=== PATIENT | male | born 1975 | race Caucasian/White ===

== ENCOUNTER 2016-11-14 12:04 | Emergency (ER) | payer SELFPAY ==
[~2016-11-14] VITALS: Ht 180.3 cm; Wt 80.0 kg
[~2016-11-14 12:04] MED LIST: DOXY100T PO; METH10TA OR; SULF-154 PO
[2016-11-14 12:07] VITALS: BP 114/60; PULSE 77; RESP 12; TEMP 98; O2SAT 97
[2016-11-14] MEDS ORDERED: IBUP800T23 PO (12:47)
[2016-11-14] MEDS ORDERED: CEPH-460 PO (12:47)
[2016-11-14] MEDS ORDERED: BACT800T5 PO (12:47)
--- NOTE | 2016-11-14 12:47 | PD ---
HPI Chief Complaint: Skin Problem Time Seen by Provider: 21:18 Travel History International Travel<30 days: No Contact w/Intl Traveler<30days: No Traveled to known affect area: No History of Present Illness HPI 41-year-old male with history of IV drug abuse presents to the emergency department for evaluation of an abscess on the right hand. Patient injects Dilaudid. Has been doing this for 20 years. Reports that he noticed the abscess yesterday but has gotten worse today. Denies any limitation range of motion the affected hand. No fever or chills. No other symptoms reported this time. PFSH Past Medical History Medical History: Denies Significant Hx Cancer: No Cardiovascular Problems: No Endocrine: No Genitourinary: No Immune Disorder: No Musculoskeletal: No Neurologic: No Psychiatric: No Reproductive: No Respiratory: No Social History Alcohol Use: Yes Tobacco Use: Yes Substance Use: Yes Allergies-Medications (Allergen,Severity, Reaction): Coded Allergies: No Known Allergies (Unverified , 11/14/16) Reported Meds & Prescriptions Reported Meds & Active Scripts Active Ibuprofen 800 Mg Tab 800 Mg PO Q8H PRN Keflex (Cephalexin) 500 Mg Cap 500 Mg PO Q6H 5 Days Bactrim DS (Sulfamethoxazole-Trimethoprim) 800-160 Mg Tab 1 Tab PO BID Doxycycline Hyclate 100 mg (Doxycycline Hyclate) 100 Mg Tab 1 Tab PO BID 10 Days Septra Ds (Trimethoprim/Sulfamethoxazole) Tab 1 Tab PO BID 10 Days Reported Methadone Hcl10 M1 10 Mg Tab 100 Mg OR DAILY Review of Systems Except as stated in HPI: all other systems reviewed are Neg Physical Exam Narrative GENERAL: Well-nourished, well-developed male patient, ambulatory no acute distress SKIN: There is an indurated area in the dorsal right hand proximal to the MCP of the thumb which measures about 2 cm in diameter. It is fluctuant but there is no pointing or drainage. There is a zone of inflammation around it but no lymphangitis. HEAD: Normocephalic. EYES: No scleral icterus. No injection or drainage. NECK: Supple, trachea midline. No JVD or lymphadenopathy. CARDIOVASCULAR: Regular rate and rhythm without murmurs, gallops, or rubs. RESPIRATORY: Breath sounds equal bilaterally. No accessory muscle use.. MUSCULOSKELETAL: No cyanosis, or edema. Patient has full flexion extension of all the digits of the affected hand. Sensation intact distal affected digits. BACK: Nontender without obvious deformity. No CVA tenderness. Data Data Last Documented VS Vital Signs Date Time Temp Pulse Resp B/P Pulse Ox O2 Delivery O2 Flow Rate FiO2 11/14/16 12:07 98.0 77 12 114/60 97 Room Air Orders Wound Culture And Gram Stain (11/14/16 12:38) MDM Medical Decision Making Medical Screen Exam Complete: Yes Emergency Medical Condition: Yes Medical Record Reviewed: Yes Differential Diagnosis Abscess versus cellulitis versus erysipelas versus folliculitis versus foreign body Narrative Course 41-year-old male presents for his apartment for evaluation of an abscess on his right hand. I&D is complete. Cultures obtained. Patient is discharged home with antibiotics. He agrees to return immediately with any acute worsening of symptoms Procedures Procedure Narrative INCISION AND DRAINAGE OF ABSCESS: The area was prepped and was sterilely draped. Topical ethyl chloride was used to anesthetize the area. The area was properly anesthetized. A number 15 scalpel was used to make a1-cm incision across the area of the abscess. Cultures were obtained. The abscess was drained an irrigated with normal saline. Sterile dressing applied. Diagnosis Primary Impression: Abscess of right hand excluding fingers and thumb Additional Impression: IVDU (intravenous drug user) Referrals: [facility] (Out patient) Primary Care Physician Patient Instructions: Abscess Incision and Drainage (ED), General Instructions Additional Instructions: Elevate to reduce pain and swelling Dressing change daily Stop using IV drugs. Utilize outpatient resources or [facility] to assist in doing so. Follow-up with primary care provider Return immediately to the emergency department with any acute worsening of symptoms. Med/Other Pt SpecificInfo: Prescription(s) given Scripts Ibuprofen 800 Mg Evq136 Mg PO Q8H PRN (Pain/Inflammation) #30 TAB Ref 0 Prov:Caty Farris 11/14/16 Cephalexin (Keflex)500 Mg Blq237 Mg PO Q6H 5 Days Ref 0 Prov:Caty Farris 11/14/16 Sulfamethoxazole-Trimethoprim (Bactrim DS)800-160 Mg Tab1 Tab PO BID #20 TAB Ref 0 Prov:Caty Farris 11/14/16 Disposition: 01 DISCHARGE HOME Condition: Stable Caty Farris Nov 14, 2016 12:47
== END 2016-11-14 13:12 | disposition home or self-care (01) ==
LOC: NETRI 12:04
DX: L02.511 Cutaneous abscess of right hand (principal); Z72.0 Tobacco use
CPT/HCPCS: 10060; 87070

== ENCOUNTER 2017-05-27 19:58 | Emergency (ER) | payer SELFPAY ==
[~2017-05-27] VITALS: Ht 180.3 cm; Wt 72.7 kg
[~2017-05-27 19:58] MED LIST changes: +BACT800T5 PO; +CEPH-460 PO; +IBUP800T23 PO
[2017-05-27 20:05] VITALS: BP 118/80; PULSE 88; RESP 18; O2SAT 96
[2017-05-27] MEDS ORDERED: SUBO8MIS SL (20:09)
--- NOTE | 2017-05-27 20:18 | PD ---
HPI Chief Complaint: OD/ Ingestion Time Seen by Provider: 20:04 Travel History International Travel<30 days: No Contact w/Intl Traveler<30days: No Traveled to known affect area: No History of Present Illness HPI The patient is a 41-year-old male who presents emergency department via EMS after heroin overdose. The patient states he has a history of IV drug abuse for the last 15-20 years. The patient has been taking Suboxone, however, has not taken Suboxone in several days. The patient used IV heroin via the left antecubital fossa at approximately 7 PM. EMS states when they arrived the patient's respiratory rate was very low, his breathing was shallow, and he was hypoxic at 80%. The patient received Narcan 0.8 mg intravenously and his symptoms resolved. The patient denies ingestion of any other medications besides heroin. He denies any current chest pain, shortness breath, nausea, vomiting, or abdominal pain. Symptoms are mild to moderate, exacerbated after the use of IV heroin, and alleviated with Narcan 0.8 mg intravenously. PFSH Past Medical History Narrative Medical IVDA Cancer: No Cardiovascular Problems: No Diminished Hearing: No Endocrine: No Genitourinary: No Immune Disorder: No Musculoskeletal: No Neurologic: No Psychiatric: No Reproductive: No Respiratory: No Immunizations Current: No Tetanus Vaccination: < 5 Years Influenza Vaccination: No Past Surgical History Narrative Surgical Noncontributory Social History Alcohol Use: Yes Tobacco Use: Yes (1 PPD) Substance Use: Yes (HEROIN USE 15-20 YRS) Allergies-Medications (Allergen,Severity, Reaction): Coded Allergies: No Known Allergies (Unverified , 05/27/17) Reported Meds & Prescriptions Reported Meds & Active Scripts Active Reported Suboxone Sublingual Film (Buprenorphine-Naloxone Sublingual Film) 8-2 Mg Film 1 Film SL Unique ID number required: Review of Systems Except as stated in HPI: all other systems reviewed are Neg General / Constitutional: No: Fever Cardiovascular: No: Chest Pain or Discomfort Respiratory: No: Shortness of Breath Gastrointestinal: No: Nausea, Vomiting, Abdominal Pain Neurologic: Positive: Change in Mentation Psychiatric: Positive: Substance Abuse Physical Exam Narrative GENERAL: Awake, alert, pleasant 41-year-old male who appears his stated age and is in no acute respiratory distress. SKIN: Focused skin assessment warm/dry. HEAD: Atraumatic. Normocephalic. EYES: Pupils equal and round. Pupils are 4 mm bilateral and reactive. ENT: No nasal bleeding or discharge. Mucous membranes pink and moist. NECK: Trachea midline. No JVD. CARDIOVASCULAR: Regular rate and rhythm. No murmur appreciated. RESPIRATORY: No accessory muscle use. Clear to auscultation. Breath sounds equal bilaterally. GASTROINTESTINAL: Abdomen soft, non-tender, nondistended. No rebound tenderness. MUSCULOSKELETAL: Marked noted in the left forearm.. NEUROLOGICAL: Awake and alert. No obvious cranial nerve deficits. Motor grossly within normal limits. Normal speech. Oriented 4. PSYCHIATRIC: Appropriate mood and affect; insight and judgment normal. Data Data Last Documented VS Vital Signs Date Time Temp Pulse Resp B/P Pulse Ox O2 Delivery O2 Flow Rate FiO2 05/27/17 21:50 108 96 Room Air 05/27/17 20:57 16 05/27/17 20:05 118/80 Orders Chest, Single Ap (05/27/17 ) [facility] Medical Decision Making Medical Screen Exam Complete: Yes Emergency Medical Condition: Yes Medical Record Reviewed: Yes Interpretation(s) Last Impressions Chest X-Ray 05/27/17 0000 Signed Impressions: Service Date/Time: Saturday, May 27, 2017 20:09 - CONCLUSION: The lungs are clear. Berto Watt MD Differential Diagnosis Differential diagnosis includes IVDA, heroin overdose, opiate overdose, illicit drug use, substance abuse. Narrative Course The patient had an IV established prior to arrival. The patient was placed on cardiac telemetry monitoring and continuous pulse oximetry monitoring with O2 via nasal cannula. Chest x-ray was obtained. The patient was observed in the emergency department for any rebound effects of heroin. The chest x-ray was unremarkable, no evidence of pulmonary edema. The patient was monitored in the emergency department, there is no evidence of hypoxia, he was awake, alert, and making phone calls repetitively. The patient will be discharged home and he has a safe ride. Diagnosis Primary Impression: Accidental heroin overdose Qualified Code: T40.1X1A - Accidental heroin overdose, initial encounter Patient Instructions: General Instructions Additional Instructions: Stop using heroin. Follow-up with your primary physician. Return if symptoms worsen or progress. Med/Other Pt SpecificInfo: No Change to Meds Disposition: 01 DISCHARGE HOME Condition: Stable Deon Tijerina MD May 27, 2017 20:18
--- NOTE | 2017-05-27 20:28 | RADRPT ---
EXAM DATE/TIME: 05/27/2017 20:09 [facility] COMPARISON: No previous studies available for comparison. INDICATIONS : Overdose. Hypoxia. MEDICAL HISTORY : None. SURGICAL HISTORY : None. ENCOUNTER: Initial ACUITY: 1 day PAIN SCORE: 6/10 LOCATION: Bilateral chest FINDINGS: A single view of the chest demonstrates the lungs to be symmetrically aerated without evidence of mas s, infiltrate or effusion. The cardiomediastinal contours are unremarkable. Osseous structures are intact. CONCLUSION: The lungs are clear. Berto Watt MD on May 27, 2017 at 20:27 Board Certified Radiologist. This report was verified electronically.
[2017-05-27 20:57] VITALS: PULSE 81; RESP 16; O2SAT 98
[2017-05-27 22:44] VITALS: BP 112/86
== END 2017-05-27 22:43 | disposition home or self-care (01) ==
LOC: PHED 19:58
DX: T40.1X1A Poisoning by heroin, accidental (unintentional), initial encounter (principal)
CPT/HCPCS: 71010; 99283